=== PATIENT | female | born 1970 ===

== ENCOUNTER 2018-10-22 22:07 | Inpatient (IN) | payer BC ==
[~2018-10-22] VITALS: Ht 165.1 cm; Wt 94.1 kg
--- NOTE | 2018-10-22 22:25 | NUR ---
Pt c/o L sided, melissa, cp radiating to L arm since 0000 this am. Denies sob. States faustin since w/o vision changes. per triage note
[2018-10-22] MEDS ORDERED: MORPHINE SULFATE 4 MG/ML, 1ML ONE (22:46)
[2018-10-22] MEDS ORDERED: ONDANSETRON 2MG/ML, 2ML ONE (22:46)
[2018-10-22 22:51] LABS: BASOPHILS # (AUTO) 0.06 x10^3/uL (0-0.1); BASOPHILS % (AUTO) 1 % (0-1); EOSINOPHILS # (AUTO) 0.24 x10^3/uL (0-0.4); EOSINOPHILS % (AUTO) 3 % (1-7); LYMPHOCYTES # (AUTO) 2.37 x10^3/uL (1-3.4); LYMPHOCYTES % (AUTO) 27 % (22-44); MD NO; MEAN CORPUSCULAR HEMOGLOBIN 28.1 pg (27.0-34.8); MEAN PLATELET VOLUME 8.8 fL (7.4-10.4); MONOCYTES # (AUTO) 0.52 x10^3/uL (0.2-0.8); MONOCYTES % (AUTO) 6 % (2-9); NEUTROPHILS % (AUTO) 63 % (42-75); PLATELET COUNT 286 x10^3/uL (130-400); RED BLOOD COUNT 5.45 x10^6/uL (3.82-5.3); RED CELL DISTRIBUTION WIDTH 14.8 % (9.6-15.2)
--- NOTE | 2018-10-22 22:52 | NUR ---
MEDICATED VSS STABLE
[2018-10-22 22:59] LABS: ALBUMIN 3.3 g/dL (3.4-5.0); ANION GAP 6 mmol/L (5-15); CALCIUM 8.7 mg/dL (8.5-10.1); CHLORIDE 110 mmol/L (98-107); CREATININE 0.74 mg/dL (0.55-1.02)
[2018-10-22] MEDS ORDERED: ONDANSETRON 2MG/ML, 2ML IVPush ONE (23:00)
[2018-10-22] MEDS ORDERED: NITROGLYCERIN 0.4 MG/HR PATCH TD ONE (23:00)
[2018-10-22] MEDS ORDERED: MORPHINE SULFATE 4 MG/ML, 1ML IVPush PRN (23:00)
[2018-10-22 23:04] LABS: TROPONIN I < 0.015 ng/mL (0.000-0.045)
--- NOTE | 2018-10-22 23:29 | NUR ---
vss stable pt is resting family at bedside call light within reach
[2018-10-23] MEDS ORDERED: METOCLOPRAMIDE 5 MG/ML, 2ML IVPush ONE
[2018-10-23] MEDS ORDERED: DIPHENHYDRAMINE 50 MG/ML, 1ML IVPush ONE
[2018-10-23] MEDS ORDERED: DIPHENHYDRAMINE 50 MG/ML, 1ML ONE (00:23)
[2018-10-23] MEDS ORDERED: METOCLOPRAMIDE 5 MG/ML, 2ML ONE (00:23)
--- NOTE | 2018-10-23 00:26 | NUR ---
MEDIDATED PER [facility]
[2018-10-23] MEDS ORDERED: SODIUM CHLORIDE 0.9% 1,000 ML IV SCH (00:27)
[2018-10-23] MEDS ORDERED: morphine SULFATE 10 MG/ML, 1ML IVPush PRN (00:30)
[2018-10-23] MEDS ORDERED: ONDANSETRON 2MG/ML, 2ML IVPush PRN (00:30)
[2018-10-23] MEDS ORDERED: ENOXAPARIN 40 MG/0.4 ML SQ SCH (00:30)
[2018-10-23] MEDS ORDERED: hydrALAzine 20 MG/ML, 1ML IVPush PRN (00:30)
--- NOTE | 2018-10-23 00:33 | NUR ---
given report to jamil santos tele pt is ready to be trnasferred after medicated for headache
[2018-10-23 00:48] VITALS: BP 167/80
[2018-10-23] MEDS ORDERED: LISINOPRIL 10 MG TABLET PO SCH (01:00)
[2018-10-23 01:45] LABS: TROPONIN I < 0.015 ng/mL (0.000-0.045)
[2018-10-23 03:14] VITALS: BP 128/74
[2018-10-23] MEDS: ACETAMINOPHEN 325 MG TABLET PO PRN ×2 (03:26→12:00)
[2018-10-23] MEDS ORDERED: ASPIRIN 325 MG TABLET EC PO SCH (06:00)
[2018-10-23 07:34] LABS: TROPONIN I < 0.015 ng/mL (0.000-0.045)
[2018-10-23 08:01] VITALS: BP 124/79
[2018-10-23 11:32] VITALS: BP 135/76
[2018-10-23] MEDS ORDERED: LISI-167 PO (13:39)
[2018-10-23] MEDS ORDERED: ASPI81TA45 PO (13:39)
[2018-10-23 14:59] VITALS: BP 126/72
== END 2018-10-23 16:50 | disposition home or self-care (01) | DRG 305 ==
LOC: ED 10-23 00:19 → 5SO 10-23 01:28 → DCLOUNGE 10-23 16:40
PROVIDERS: ADMIT Family Medicine; ATTEND Family Medicine
DX: I16.9 Hypertensive crisis, unspecified (principal); E66.9 Obesity, unspecified; Z68.34 Body mass index [BMI] 34.0-34.9, adult
CPT/HCPCS: 36415; 80048; 82040; 83880; 84484; 84703; 85025; 85379; 93005; 93017; J1650; J2405; J1200; J2270; J2765; J7030